=== PATIENT | female | born 2000 | race Hispanic/Latino ===

== ENCOUNTER 2019-11-02 10:28 | Emergency (ER) | payer OTHER ==
--- NOTE | 2019-11-02 12:39 | Emergency Department Report ---
Blank Doc - Documentation Documentation: 18-year-old female that presents with abdominal pain, n/v, diarrhea, and decre ased smell and taste. This initial assessment/diagnostic orders/clinical plan/treatment(s) is/are subject to change based on patient's health status, clinical progression and re- assessment by fellow clinical providers in the ED. Further treatment and workup at subsequent clinical providers discretion. Patient/guardians urged not to elope from the ED as their condition may be serious if not clinically assessed and managed. Initial orders include: 1- Patient sent to [facility] for further evaluation and treatment 2- labs 3- UA
[2019-11-02 13:15] LABS: Basophils # (Auto) 0.1 K/mm3 (0.0-0.1); Basophils % (Auto) 1.2 % (0.0-1.8); Eosinophils # (Auto) 0.1 K/mm3 (0.0-0.4); Eosinophils % (Auto) 0.9 % (0.0-4.3); Hemoglobin 13.2 gm/dl (10.1-14.3); Lymphocytes # (Auto) 2.1 K/mm3 (1.2-5.4); Lymphocytes % (Auto) 19.9 % (13.4-35.0); Mean Corpuscular HGB Conc 33 % (30-34); Mean Corpuscular Volume 86 fl (79-97); Monocytes # (Auto) 0.5 K/mm3 (0.0-0.8); Monocytes % (Auto) 4.6 % (0.0-7.3); Platelet Count 323 K/mm3 (140-440); Red Blood Count 4.63 M/mm3 (3.65-5.03); Red Cell Distribution Width 15.9 % (13.2-15.2)
[2019-11-02 14:00] LABS: Alanine Aminotransferase 18 units/L (7-56); Albumin 4.3 g/dL (3.9-5); BUN/Creatinine Ratio 12; Blood Urea Nitrogen 7 mg/dL (7-17); Calcium 9.3 mg/dL (8.4-10.2); Hemolysis Index 7
[2019-11-02 14:44] VITALS: BP 141/71
--- NOTE | 2019-11-02 14:58 | Emergency Department Report ---
ED N/V/D HPI - General Chief complaint: Abdominal Pain Stated complaint: FATIQUE/CRAMPS/DIARRHEA Time Seen by Provider: 11/02/19 12:39 Source: patient Mode of arrival: Ambulatory Limitations: No Limitations - History of Present Illness Initial comments: 18-year-old female, no past medical history, presents to ED with 4-day history of diarrhea. Patient reports associated headache, loss of smell and taste. Patient denies nasal congestion, runny nose, body aches, cough, shortness of breath, vomiting. Patient denies any sick contacts. Patient reports she works at [employer], but her shoulder has been closed down because someone tested positive for COVID-19. MD complaint: diarrhea -: days(s) (4) Description of Diarrhea: water Associated Abdominal Pain: No Severity: moderate Consistency: constant Improves with: none Worsens with: eating Associated Symptoms: headaches. denies: myalgias, chest pain, cough, fever/chills, shortness of breath ED Review of Systems ROS: Stated complaint: FATIQUE/CRAMPS/DIARRHEA Other details as noted in HPI Comment: All other systems reviewed and negative Constitutional: denies: chills, fever ENT: other (Reports loss of smell and taste). denies: throat pain, congestion Respiratory: denies: cough, shortness of breath Cardiovascular: denies: chest pain Gastrointestinal: nausea, diarrhea. denies: abdominal pain, vomiting Musculoskeletal: denies: myalgia Neurological: headache ED Past Medical Hx - Past Medical History Previous Medical History?: No - Surgical History Past Surgical History?: No - Social History Smoking Status: Unknown if ever smoked Substance Use Type: None ED Physical Exam - General Limitations: No Limitations General appearance: alert, in no apparent distress - Head Head exam: Present: atraumatic, normocephalic - Eye Eye exam: Present: normal appearance, EOMI - ENT ENT exam: Present: mucous membranes moist - Neck Neck exam: Present: normal inspection - Respiratory Respiratory exam: Present: normal lung sounds bilaterally. Absent: respiratory distress - Cardiovascular Cardiovascular Exam: Present: regular rate, normal rhythm - GI/Abdominal GI/Abdominal exam: Present: soft. Absent: distended, tenderness - Extremities Exam Extremities exam: Present: normal inspection - Neurological Exam Neurological exam: Present: alert, oriented X3 - Psychiatric Psychiatric exam: Present: normal affect, normal mood - Skin Skin exam: Present: warm, dry, intact, normal color ED Course Vital Signs 11/02/19 11/02/19 11:46 14:43 Temperature 98.5 F 98.6 F Pulse Rate 75 66 Respiratory 18 16 Rate Blood Pressure 145/82 Blood Pressure 141/71 [Left] O2 Sat by Pulse 98 98 Oximetry ED Medical Decision Making - Lab Data Result diagrams: 11/02/19 12:43 11/02/19 12:43 - Medical Decision Making 18-year-old female, no past medical history, presents with loss of smell and taste and diarrhea. Suspect a COVID-19 infection. Patient denies cough, shortness of breath. O2 sats are normal, patient has no respiratory distress. No chest x-ray indicated at this time. Patient advised to quarantine for total of 14 days. Patient advised to obtain outpatient COVID-19 testing. Return precautions given. Critical care attestation.: If time is entered above; I have spent that time in minutes in the direct care of this critically ill patient, excluding procedure time. ED Disposition Clinical Impression: Diarrhea, Suspected 2019 novel coronavirus infection Disposition: -01 TO HOME OR SELFCARE Is pt being admited?: No Condition: Stable Instructions: Acute Diarrhea (ED), COVID-19 Referrals: ALANNA ALEGRIA MD [Primary Care Provider] - 3-[address] [facility] [Outside] - 3-5 Days Time of Disposition: 14:56
== END 2019-11-02 15:18 | disposition home or self-care (01) ==
LOC: ED 10:28
DX: R19.7 Diarrhea, unspecified (principal); Z20.828 Contact with and (suspected) exposure to other viral communicable diseases
CPT/HCPCS: 36415; 80053; 83690; 84703; 85025; 99283